=== PATIENT | female | born 1950 | race American Indian/Alaskan Native ===

== ENCOUNTER 2021-10-10 20:32 | Emergency (ER) | payer MEDICARE ==
[2021-10-10] MEDS ORDERED: dilTIAZem 25 MG/5 ML INJ IV ONE ×2 (21:11→23:46)
--- NOTE | 2021-10-10 21:17 | Emergency Department Report ---
ED Palpitations HPI - General Stated Complaint: DIZZINESS Time Seen by Provider: 10/10/21 21:02 - History of Present Illness Initial Comments: Patient is a 71-year-old female with history of atrial fibrillation, CHF on lisinopril, Eliquis and Lasix brought in by EMS from home for evaluation of rapid heart rate. She reports several syncopal events over the past few weeks. States she feels her heart racing at times. She denies any incidence of chest pain or shortness of breath. MD Complaint: rapid heart beat, palpitations, irregular heart beat -: week(s) (3) Arrythmia History: atrial fibrillation, on anti-coagulants Associated Symptoms: denies other symptoms - Related Data Allergies Allergy/AdvReac Type Severity Reaction Status Date / Time No Known Allergies Allergy Verified 10/10/21 21:52 ED Review of Systems ROS: Stated complaint: DIZZINESS Other details as noted in HPI Constitutional: no symptoms reported Respiratory: no symptoms reported Cardiovascular: syncope. denies: chest pain Endocrine: no symptoms reported Gastrointestinal: denies: abdominal pain, nausea, vomiting Genitourinary: denies: urgency, dysuria Musculoskeletal: denies: back pain, joint swelling Skin: denies: rash, lesions Neurological: denies: headache, weakness Hematological/Lymphatic: denies: easy bleeding, easy bruising ED Past Medical Hx - Past Medical History Hx Hypertension: Yes Hx Congestive Heart Failure: Yes ED Physical Exam - General Limitations: No Limitations General appearance: alert, in no apparent distress - Head Head exam: Present: atraumatic, normocephalic - Eye Eye exam: Present: normal appearance, EOMI - Neck Neck exam: Present: normal inspection - Respiratory Respiratory exam: Present: normal lung sounds bilaterally. Absent: respiratory distress, wheezes - Cardiovascular Cardiovascular Exam: Present: tachycardia, irregular rhythm. Absent: rubs, gallop - GI/Abdominal GI/Abdominal exam: Present: soft. Absent: distended, tenderness - Rectal Rectal exam: Present: deferred - Neurological Exam Neurological exam: Present: alert, oriented X3, CN II-XII intact - Psychiatric Psychiatric exam: Present: normal affect, normal mood - Skin Skin exam: Present: warm, dry, intact ED Course Vital Signs 10/10/21 10/10/21 10/10/21 20:45 22:07 23:53 Temperature 97.9 F Pulse Rate 118 H 128 H 123 H Respiratory 24 Rate Blood Pressure 125/85 118/94 Blood Pressure 103/65 [Left] O2 Sat by Pulse 95 Oximetry ED Medical Decision Making - Lab Data Result diagrams: 10/10/21 21:43 10/10/21 21:43 - EKG Data -: EKG Interpreted by Me (Atrial fibrillation with RVR. Ventricular rate 117.) - Medical Decision Making Patient given 10 mg of IV Cardizem initially and remained in A. fib with RVR. She was given a repeat dose resulting in rate control. Heart rate currently in the 80s. Patient states she feels better and is ready to go home. Stable for discharge home with return precautions. Critical care attestation.: If time is entered above; I have spent that time in minutes in the direct care of this critically ill patient, excluding procedure time. ED Disposition Clinical Impression: Atrial fibrillation with RVR Disposition: 01 HOME / SELF CARE / HOMELESS Is pt being admited?: No Does the pt Need Aspirin: No Condition: Stable Instructions: Atrial Fibrillation, [id number] Print Language: ARMENIAN
[2021-10-10 22:27] LABS: Hematocrit 37.2 % (30.3-42.9); Hemoglobin 12.7 gm/dl (10.1-14.3); Mean Corpuscular HGB Conc 34 % (30-34); Mean Corpuscular Volume 87 fl (79-97); Platelet Count 314 K/mm3 (140-440); Red Blood Count 4.29 M/mm3 (3.65-5.03)
[2021-10-10 23:10] LABS: Alanine Aminotransferase 11 units/L (7-56); Albumin 3.6 g/dL (3.9-5); BUN/Creatinine Ratio 27; Blood Urea Nitrogen 40 mg/dL (7-17); Calcium 9.1 mg/dL (8.4-10.2); Hemolysis Index 4
[2021-10-11 01:18] VITALS: BP 137/108
--- NOTE | 2021-10-12 20:11 | Electrocardiograph Report ---
[facility] [place] Test Date: 2021-10-10 Test Time: 20:59:56 Pat Name: BREN HERNANDEZ Department: Room: Gender: F [employer] Teacher: BETITO : 1950 Requested By: AARON SERRANO Order Number: [id number] Reading MD: Gonzalo Roldan Measurements Intervals [place] Rate: 117 P: IN: QRS: 76 QRSD: 117 T: 236 QT: 342 QTc: 478 Interpretive Statements Atrial fibrillation Nonspecific intraventricular conduction delay Repol abnrm suggests ischemia, anterolateral No previous ECG available for comparison Electronically Signed On 10-12-2021 20:10:43 EDT by Gonzalo Roldan
== END 2021-10-11 01:00 | disposition home or self-care (01) ==
LOC: ED 20:32
DX: I48.20 Chronic atrial fibrillation, unspecified (principal)
CPT/HCPCS: 36415; 80053; 83735; 84484; 85025; 93005; 96374; 96376; 99284; J3490; 96375